=== PATIENT | male | born 1960 | race Caucasian/White ===

== ENCOUNTER 2023-08-20 07:45 | Inpatient (IN) | payer OTHER ==
[~2023-08-20] VITALS: Ht 170.2 cm; Wt 96.6 kg
[2023-08-20 08:16] LABS: BASOPHILS % 0.4 % (0.0-2.0); EOSINOPHILS % 0.8 % (0.0-5.0); HEMATOCRIT. 45.2 % (42.0-52.0); HEMOGLOBIN. 15.5 g/dL (14.0-18.0); LYMPHOCYTES % 19.2 % (20.0-50.0); MEAN CORPUSCULAR HEMOGLOBIN 30.7 pg (28.0-32.0); MEAN CORPUSCULAR HGB CONC 34.3 g/dL (31.0-37.0); MEAN CORPUSCULAR VOLUME 89.6 fL (80.0-94.0); MEAN PLATELET VOLUME 9.5 fl (7.4-10.4); MONOCYTES % 5.5 % (2.0-8.0); NEUTROPHILS % 74.1 % (40.0-76.0); PLATELET 210 x1000/uL (130-400); RED BLOOD CELL COUNT 5.05 mill/uL (4.7-6.1); RED CELL DISTRIBUTION WIDTH 13.6 % (11.6-14.6); WHITE BLOOD COUNT 7.8 x1000/uL (4.5-11.0)
[2023-08-20 08:44] LABS: ALANINE AMINOTRANSFERASE 87 IU/L (10-49); ALBUMIN 4.8 g/dL (3.2-4.8); ASPARTATE AMINOTRANSFERASE 54 IU/L (<34); CARBON DIOXIDE 26 mEq/L (21-32); CHLORIDE 105 mEq/L (98-107); GLUCOSE 114 mg/dL (70-105); POTASSIUM 4.1 mEq/L (3.5-5.1); PROTEIN TOTAL 8.4 g/dL (6.0-8.3); SODIUM 137 mEq/L (136-145); UREA NITROGEN BLOOD 8 mg/dL (9-23)
[2023-08-20 08:53] LABS: TROPONIN I HIGH SENSITIVITY 100 ng/L (3.0-53)
[2023-08-20] MEDS ORDERED: ACETAMINOPHEN 325MG TABLET PO PRN ×2 (12:00)
[2023-08-20] MEDS ORDERED: MAGNESIUM/ALUMINUM HYDROXIDE/SIMETHICONE 30ML UDC PO PRN (12:00)
[2023-08-20] MEDS ORDERED: GUAIFENESIN 200MG/10ML SUGAR FREE UDC PO PRN (12:00)
[2023-08-20] MEDS ORDERED: ONDANSETRON HCL 4MG/2ML INJ IV PRN (12:00)
[2023-08-20] MEDS ORDERED: DOCUSATE SODIUM 100MG CAPSULE PO PRN (12:00)
[2023-08-20] MEDS ORDERED: IPRATROPIUM/ALBUTEROL 0.5-3(2.5)MG/3ML NEB HHN PRN (12:00)
[2023-08-20] MEDS ORDERED: CLONIDINE 0.1MG TABLET PO PRN (12:00)
[2023-08-20] MEDS: ASPIRIN 81MG EC TABLET PO SCH (13:57)
[2023-08-20] MEDS: ENOXAPARIN 40MG/0.4ML SYR SUBCUT SCH (13:57)
[2023-08-20] MEDS: MULTIVITAMINS,THER W-MINERALS TABLET PO SCH (13:57)
[2023-08-20 14:03] LABS: CLARITY URINE CLEAR (CLEAR); COLOR URINE YELLOW (YELLOW); GLUCOSE URINE NEGATIVE (NEGATIVE); KETONES URINE 1+ (NEGATIVE); LEUKOCYTE ESTERASE URINE NEGATIVE (NEGATIVE); NITRITE URINE NEGATIVE (NEGATIVE); OCCULT BLOOD URINE NEGATIVE (NEGATIVE); PROTEIN URINE NEGATIVE (NEGATIVE); SPECIFIC GRAVITY URINE 1.008 (1.005-1.030); UROBILINOGEN URINE 0.2 E.U./dL (0.2-1.0)
[2023-08-20 14:19] LABS: *AMPHETAMINES SCREEN URINE NEGATIVE (NEGATIVE); *BARBITURATES SCREEN URINE NEGATIVE (NEGATIVE); *BENZODIAZEPINES SCREEN URINE NEGATIVE (NEGATIVE); *COCAINE SCREEN URINE NEGATIVE (NEGATIVE); CANNABINOID URINE SCREEN NEGATIVE (NEGATIVE); ECSTASY MDMA SCREEN URINE NEGATIVE (NEGATIVE); METHADONE URINE SCREEN Neg (NEGATIVE); OPIATES URINE SCREEN NEGATIVE (NEGATIVE); PHENCYCLIDINE URINE SCREEN NEGATIVE (NEGATIVE)
[2023-08-20 15:21] LABS: CREATINE KINASE 167 IU/L (46-171)
[2023-08-20 15:31] LABS: TROPONIN I HIGH SENSITIVITY 1203 ng/L (3.0-53)
[2023-08-20] MEDS: METOPROLOL TARTRATE 25MG TABLET PO SCH (16:18)
[2023-08-20] MEDS ORDERED: ZOLPIDEM TARTRATE 5MG TABLET PO PRN (21:00)
[2023-08-20] MEDS ORDERED: METOPROLOL TARTRATE 25MG TABLET PO SCH ×2 (21:00)
[2023-08-20] MEDS: ATORVASTATIN CALCIUM 20MG TABLET PO SCH (21:39)
[2023-08-20] MEDS: FAMOTIDINE 20MG TABLET PO SCH (21:39)
[2023-08-20] MEDS: MELATONIN 3MG TABLET PO SCH (21:47)
[2023-08-20 22:50] VITALS: BP 127/73; PULSE 62; RESP 18; TEMP 97.4
[2023-08-20 22:58] VITALS: BP 127/73; PULSE 62; RESP 18; TEMP 97.4
[2023-08-20 23:39] VITALS: BP 127/73; PULSE 60; RESP 18; TEMP 97.4
[2023-08-20 23:51] LABS: CREATINE KINASE 142 IU/L (46-171)
[2023-08-21 00:09] LABS: TROPONIN I HIGH SENSITIVITY 1188 ng/L (3.0-53)
[2023-08-21 04:00] VITALS: BP 107/53; PULSE 60; RESP 18; TEMP 97.4
[2023-08-21 07:36] LABS: BASOPHILS % 0.5 % (0.0-2.0); EOSINOPHILS % 1.4 % (0.0-5.0); HEMATOCRIT. 43.8 % (42.0-52.0); HEMOGLOBIN. 14.9 g/dL (14.0-18.0); LYMPHOCYTES % 34.7 % (20.0-50.0); MEAN CORPUSCULAR HEMOGLOBIN 29.9 pg (28.0-32.0); MEAN CORPUSCULAR HGB CONC 33.9 g/dL (31.0-37.0); MEAN CORPUSCULAR VOLUME 88.3 fL (80.0-94.0); MEAN PLATELET VOLUME 10.4 fl (7.4-10.4); MONOCYTES % 8.8 % (2.0-8.0); NEUTROPHILS % 54.6 % (40.0-76.0); PLATELET 222 x1000/uL (130-400); RED BLOOD CELL COUNT 4.97 mill/uL (4.7-6.1); RED CELL DISTRIBUTION WIDTH 13.1 % (11.6-14.6); WHITE BLOOD COUNT 7.2 x1000/uL (4.5-11.0)
[2023-08-21 08:00] VITALS: BP 124/77; PULSE 62; RESP 18; TEMP 97.8
[2023-08-21 08:20] LABS: ALANINE AMINOTRANSFERASE 63 IU/L (10-49); ALBUMIN 4.3 g/dL (3.2-4.8); ASPARTATE AMINOTRANSFERASE 35 IU/L (<34); CARBON DIOXIDE 24 mEq/L (21-32); CHLORIDE 107 mEq/L (98-107); CHOLESTEROL 102 mg/dL (<200); CREATININE 0.9 mg/dL (0.6-1.3); GLUCOSE 81 mg/dL (70-105); HDL CHOLESTEROL 36 mg/dL (>55); LDL CHOLESTEROL 53 mg/dL (5-100); PHOSPHORUS 2.7 mg/dL (2.5-4.9); POTASSIUM 4.3 mEq/L (3.5-5.1); PROTEIN TOTAL 7.5 g/dL (6.0-8.3); SODIUM 138 mEq/L (136-145); T4 FREE 1.14 ng/dL (0.89-1.76); THYROID STIMULATING HORMONE 0.84 uIU/mL (0.55-4.78); TRIGLYCERIDE 92 mg/dL (0-150); UREA NITROGEN BLOOD 9 mg/dL (9-23)
[2023-08-21 12:00] VITALS: BP 122/76; PULSE 64; RESP 20; TEMP 96.8
[2023-08-21] MEDS: METOPROLOL TARTRATE 25MG TABLET PO SCH (13:22)
[2023-08-21 16:00] VITALS: BP 135/72; PULSE 64; RESP 20; TEMP 98.2
[2023-08-21] MEDS: ENOXAPARIN 30MG/0.3ML SYR SUBCUT SCH (17:06)
[2023-08-21 20:08] VITALS: BP 124/62; PULSE 66; RESP 18; TEMP 99.1
[2023-08-22 00:30] VITALS: BP 107/53; PULSE 59; RESP 18; TEMP 98.7
[2023-08-22 04:00] VITALS: BP 116/68; PULSE 64; RESP 19; TEMP 98.3
[2023-08-22 08:00] VITALS: BP 138/75; PULSE 64; RESP 18; TEMP 97.2
[2023-08-22 09:05] LABS: TROPONIN I HIGH SENSITIVITY 792 ng/L (3.0-53)
[2023-08-22] MEDS: NITROGLYCERIN SPRAY/4.9GM CAN TL ONE (11:25)
[2023-08-22 12:00] VITALS: BP 127/74; PULSE 61; RESP 18; TEMP 98
[2023-08-22] MEDS ORDERED: IOHEXOL-350 100 ML BOTTLE ONE (13:58)
[2023-08-22 16:00] VITALS: BP 117/65; PULSE 64; PULSE 73; RESP 18; TEMP 97.8
[2023-08-22 20:00] VITALS: BP 122/70; PULSE 69; RESP 19; TEMP 97.1
[2023-08-23] VITALS: BP 116/81; PULSE 67; RESP 18; TEMP 97.6
[2023-08-23 04:00] VITALS: BP 108/51; PULSE 64; RESP 19; TEMP 97.2
[2023-08-23] MEDS ORDERED: ASPI-1406 PO (07:09)
[2023-08-23] MEDS ORDERED: METO25TA6 PO (07:09)
[2023-08-23] MEDS ORDERED: ATOR20TA PO (07:09)
[2023-08-23 08:00] VITALS: BP 112/72; PULSE 75; RESP 18; TEMP 97.4
[2023-08-23 11:32] VITALS: BP 120/70; PULSE 70; TEMP 98; O2SAT 100
[2023-08-23 12:00] VITALS: BP 120/78; PULSE 75; RESP 18; TEMP 97
== END 2023-08-23 13:41 | disposition home or self-care (01) | DRG 282 ==
LOC: ER 07:45 → EDBEDREQTM 09:50 → EDBEDREQ 09:50 → 7WST 22:48
PROVIDERS: ADMIT Internal Medicine; ATTEND Internal Medicine
DX: I47.10 Supraventricular tachycardia, unspecified (principal); I21.A1 Myocardial infarction type 2; E66.9 Obesity, unspecified; E78.00 Pure hypercholesterolemia, unspecified; Z79.82 Long term (current) use of aspirin; Z79.899 Other long term (current) drug therapy; Z68.33 Body mass index [BMI] 33.0-33.9, adult
CPT/HCPCS: 36415; 71045; 75571; 80053; 80061; 80305; 81003; 82550; 83036; 83735; 83880; 84100; 84439; 84443; 84484; 85025; 93005; 93306; 99285; J1650; Q9967

== ENCOUNTER → 2023-08-28 | Emergency (ER) | payer OTHER ==
[~2023-08-28] VITALS: Ht 172.7 cm; Wt 100.0 kg
[~2023-08-28] MED LIST: ASPI-1406 PO; ASPIRIN 325MG EC TABLET PO NR; ATOR20TA PO; ENOXAPARIN 100MG/ML SYR SUBCUT NR; METO25TA6 PO
[2023-08-28 18:43] VITALS: BP 174/93; PULSE 75; RESP 18; TEMP 98.5; O2SAT 99
[2023-08-28 19:11] LABS: BASOPHILS % 0.9 % (0.0-2.0); EOSINOPHILS % 0.3 % (0.0-5.0); HEMOGLOBIN. 15.2 g/dL (14.0-18.0); MEAN CORPUSCULAR HEMOGLOBIN 31.3 pg (28.0-32.0); MEAN CORPUSCULAR HGB CONC 36.1 g/dL (31.0-37.0); MEAN CORPUSCULAR VOLUME 86.7 fL (80.0-94.0); MEAN PLATELET VOLUME 9.8 fl (7.4-10.4); MONOCYTES % 4.5 % (2.0-8.0); NEUTROPHILS % 78.3 % (40.0-76.0); PLATELET 249 x1000/uL (130-400); RED BLOOD CELL COUNT 4.84 mill/uL (4.7-6.1); RED CELL DISTRIBUTION WIDTH 13.1 % (11.6-14.6); WHITE BLOOD COUNT 14.6 x1000/uL (4.5-11.0)
[2023-08-28 19:17] LABS: CARBON DIOXIDE 18 mEq/L (21-32); CHLORIDE 103 mEq/L (98-107); POTASSIUM 3.7 mEq/L (3.5-5.1); SODIUM 132 mEq/L (136-145)
[2023-08-28 19:18] LABS: CALCIUM 9.2 mg/dL (8.7-10.4); DIFFERENTIAL COMMENT 1
[2023-08-28 19:22] LABS: CREATININE 0.9 mg/dL (0.6-1.3); GLUCOSE 125 mg/dL (70-105)
[2023-08-28 19:23] LABS: UREA NITROGEN BLOOD 10 mg/dL (9-23)
[2023-08-28 19:24] LABS: ALANINE AMINOTRANSFERASE 48 IU/L (10-49); ALBUMIN 4.7 g/dL (3.2-4.8); ASPARTATE AMINOTRANSFERASE 26 IU/L (<34)
[2023-08-28 19:25] LABS: BILIRUBIN TOTAL 0.6 mg/dL (0.1-1.0); PROTEIN TOTAL 8.6 g/dL (6.0-8.3); TROPONIN I HIGH SENSITIVITY 158 ng/L (3.0-53)
== END ==
LOC: ER 18:36
DX: R07.9 Chest pain, unspecified (principal); Z53.21 Procedure and treatment not carried out due to patient leaving prior to being seen by health care provider
CPT/HCPCS: 36415; 71045; 80053; 84484; 85025; 93005; 99281